=== PATIENT | female | born 1950 | race Caucasian/White ===

== ENCOUNTER 2023-12-23 08:19 | Emergency (ER) | payer OTHER, SELFPAY ==
[2023-12-23 08:48] VITALS: BP 156/85; PULSE 77; RESP 18; TEMP 37.2; O2SAT 97; BMI 23.6
--- NOTE | 2023-12-23 09:05 | XR_ITS ---
Patient: DES BARNARD Facility:?[facility] Patient ID:?[id number] Site Patient ID:?[id number]. Site :?[id number] Study:?XRay-Spine Thoracic 3 VIEWS-12/23/2023 9:28:15 AM Ordering Physician:PIERRE Final Report: Indication: Pain Technique: Three views of the thoracic spine were obtained as AP, lateral and swimmer`s views Comparison: None Findings: Decreased bone mineral density. Moderate S shaped scoliosis. Significant degenerative changes mainly at the mid and upper thoracic spine as well as the incidentally visualized cervical spine. Kyphoscoliosis. No visible acute fracture, dislocation or destructive process. Impression: Decreased bone mineral density. Kyphoscoliosis. Degenerative changes. No visible acute fracture, dislocation or destructive process. Dictated by Carroll Mendieta MD @ 12/23/2023 9:52:26 AM Signed by:?Carroll Mendieta MD @12/23/2023 9:52:26 AM (Electronic Signature)
--- NOTE | 2023-12-23 09:10 | ED_ITS ---
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 She has pain in her left paravertebral area on the midthoracic spine. It has been uncomfortable. Seems like it is getting a bit worse. She has had no fevers, cough, chills. She works out twice a week with a software trainer. She has known osteoporosis. She is not on any medications currently. She has had no fevers or chills as mention, no history of similar symptoms. She does think she hurt it when she lifted this board. Related Data Allergies Allergy/AdvReac Type Severity Reaction Status Date / Time Penicillins Allergy Verified 12/23/23 08:48 Review of Systems Status of ROS: Reports: 6 or more systems reviewed and unremarkable except as noted in History and below PFSH PFS Social History Smoking Status: Never smoker Do you use any of these nicotine containing products: None How often do you have a drink containing alcohol: 2-4 times a month How many standard drinks containing alcohol do you have on a typical day: 1 or 2 How often do you have six or more drinks on one occasion: Never AUDIT-C Alcohol total score: 2 Non-prescribed substance use: denies use service: No Exam Narrative: Exam Narrative: Objective: Patient is in no marked distress but is standing walking about the room Afebrile Blood pressure is slightly elevated Patient points to her paravertebral muscles on the left thoracic spine mid area as the area of tenderness. There is no marked palpable tenderness, no midline pain in her back. Range of motion is limited secondary to discomfort. She den ies any radicular symptoms, moving arms and legs well, able ambulate without difficulty. Const: Vital Signs, click to edit/add: Vital Signs - 24 hr 12/23/23 08:48 Temperature 98.9 F Pulse Rate [Pulse Oximeter] 77 Respiratory Rate 18 Blood Pressure [Ri ght Upper Arm] 156/85 H Pulse Oximetry 97 Oxygen Delivery Me thod Room Air Course Vital Signs Vital signs: Initial Vital Signs Temperature 98.9 F 12/23/23 08:48 Temperature Source Temporal Artery Scan 12/23/23 08:48 Pulse Rate 77 12/23/23 08:48 Pulse Rhythm Regular 12/23/23 08:48 Respiratory Rate 18 12/23/23 08:48 Blood Pressure 156/85 H 12/23/23 08:48 Blood Pressure Mean 108 H 12/23/23 08:48 Blood Pressure Position Standing 12/23/23 08:48 Pulse Oximetry 97 12/23/23 08:48 Oxygen Delivery Method Room Air 12/23/23 08:48 Vital Signs Temperature 98.9 F 12/23/23 08:48 Pulse Rate 77 12/23/23 08:48 Respiratory Rate 18 12/23/23 08:48 Blood Pressure 156/85 H 12/23/23 08:48 Pulse Oximetry 97 12/23/23 08:48 Oxygen Delivery Method Room Air 12/23/23 08:48 Temperature 98.9 F 12/23/23 08:48 Pulse Rate 77 12/23/23 08:48 Respiratory Rate 18 12/23/23 08:48 Blood Pressure 156/85 H 12/23/23 08:48 Pulse Oximetry 97 12/23/23 08:48 Oxygen Delivery Method Room Air 12/23/23 08:48 Medications Administered Medications: Discontinued Medications Generic Name Dose Route Start Last Admin Trade Name Tonya PRN Reason Stop Dose Admin Morphine Sulfate 4 mg 12/23/23 09:05 12/23/23 09:18 Morphine 10 Mg/Ml Inj IM 12/23/23 09:06 4 mg ONCE ONE Administration Medical Decision Making MDM Narrative Medical decision making narrative: 73-year-old female with a thoracic back strain. History of osteoporosis. I think making sure she has never compression fracture thoracic spine be appropriate, if her thoracic spine x-ray is negative, I think she can take Tylenol Advil at home. Will give her a 4 mg IM dose of morphine here. This should help with muscle relaxation without being overly sedating. She should recheck with regular doctor next 2-3 days to reach cyst check and see how she is doing, may need physical therapy or other modality. Addendum 9:56 a.m.: Patient's x-ray read by me looks unremarkable, Radiology confirms. At this point I think we can allow her to go home Tylenol and Aleve as mention, will have given the morphine here. She can ice on aggressive basis. Follow up with regular doctor in 2-3 days consider physical therapy if not improving. Or more advanced imaging. Discharge Plan Discharge Clinical Impression: Acute thoracic myofascial strain Patient Disposition: Home w/ Parent or Adult Condition: Stable Additional Instructions: Light activity, Advil or Aleve as needed, Tylenol as needed, ice to the affected area 5-10 minutes 3 to 5 times a day, follow up with primary care in the next 2- 3 days for reassessment, consider physical therapy if not improving. Activity Level: Light activity Discharge Diet: Regular Follow Up/Referrals: Alin Desai MD [Staff Physician] - Stand Alone Forms: [address] [employer] Info Instructions
[2023-12-23] MEDS: MORPHINE 10 MG/ML inj 4 MG IM (09:18)
== END 2023-12-23 10:12 | disposition home or self-care (01) ==
PROVIDERS: Emergency Provider Family Medicine
DX: S29.012A Strain of muscle and tendon of back wall of thorax, initial encounter (principal); X50.0XXA Overexertion from strenuous movement or load, initial encounter; Y99.0 Civilian activity done for income or pay
CPT/HCPCS: 72070; 96372; 99283; 99284; J2270

== ENCOUNTER 2024-12-14 18:50 | Outpatient (CLI) | payer OTHER, SELFPAY | END 2024-12-14 18:51 | disposition home or self-care (01) | LOC: NFLDREF 12-15 11:31 | PROVIDERS: Visit Provider Nurse Practitioner Family | DX: R39.15 Urgency of urination (principal); N30.00 Acute cystitis without hematuria | CPT/HCPCS: 87086 ==

== ENCOUNTER 2025-05-13 08:19 | Day surgery (SDC) | payer MEDICARE, BC, SELFPAY ==
[2025-05-13] VITALS (33 sets, daily range): BP systolic 64–181; BP diastolic 36–95; PULSE 49–70; RESP 12–18; TEMP 35.9–37.8; O2SAT 93–98; BMI 21.7
[2025-05-13] MEDS: OXYCODONE (CR) 10 MG TAB.ER.12H PO (09:10)
[2025-05-13] MEDS: ACETAMINOPHEN 500 MG TABLET 1000 MG PO ×3 (09:10→23:02)
[2025-05-13] MEDS: SODIUM CHLORIDE 0.9 % (FLUSH) 10 ML SYRINGE IVF (09:20)
--- NOTE | 2025-05-13 09:30 | W.PM.H&PU ---
History & Physical Update History & Physical Update H&P Reviewed and patient assessed: No changes noted
--- NOTE | 2025-05-13 09:31 | CRLHL7_ITS ---
For Patients: As a result of the Cures Act, medical imaging exams and procedure reports are released immediately into your electronic medical record. You may view this report before your referring provider. If you have questions, please contact your health care provider. Indication: Status post right replacement. Technique: AP pelvis and cross-table lateral view right hip. Comparison: Pelvis and right hip radiograph 04/23/2025. Findings: An uncemented right total hip arthroplasty has been placed. Components are well positioned. No other retained radiopaque metallic surgical foreign body is present. There are postoperative changes within the right hip soft tissues. There is severe osteoarthritis of the left hip. Impression: Status post right total arthroplasty. Dictated by Dez Mendez MD @ 05/13/2025 3:50:48 PM (Electronically Signed)
[2025-05-13] MEDS: LACTATED RINGERS 1000 ML 1,000 ML 100 ML IV ×2 (09:48→11:59)
[2025-05-13] MEDS: MIDAZOLAM HCL 1 MG/ML inj IVP (10:15)
--- NOTE | 2025-05-13 10:22 | SUR.PREOP ---
TIME?OUT:?1015 PT/RN/MDA?VERIFICATION?OF?SURGICAL?SITE,?PROCEDURE,?AND?CONSENT OBTAINED?PRIOR?TO?INVASIVE?PROCEDURE.
--- NOTE | 2025-05-13 10:30 | CRLHL7_ITS ---
For Patients: As a result of the Cures Act, medical imaging exams and procedure reports are released immediately into your electronic medical record. You may view this report before your referring provider. If you have questions, please contact your health care provider. Indication: Status post hip replacement. Technique: Fluoroscopic guidance was utilized by Dr. Vazquez. One spot radiographic images were obtained. 30.5 seconds of fluoroscopy time was utilized. Dictated by Dez eMndez MD @ 05/13/2025 3:32:35 PM (Electronically Signed)
[2025-05-13] MEDS: TRANEXAMIC ACID 100 MG/ML INJ 1000 MG IV (10:40)
--- NOTE | 2025-05-13 11:51 | PM.ORPRC ---
Procedure Note Date of procedure: 05/13/25 Procedure: PREOPERATIVE DIAGNOSIS: 1. Right hip osteoarthritis, severe, primary POSTOPERATIVE DIAGNOSIS: 1. Right hip osteoarthritis, severe, primary PROCEDURE: 1. Right total hip arthroplasty-anterior approach 2. 15384 - intraoperative fluoroscopy up to 1 hour. SURGEON: Cj Vazquez MD. VEGETABLE I FARMWORKER: Sourav Yeung PA-C; JEANNE Walls - Of note, a skilled metallurgical laboratory assistant was critical for this case to aid in patient positioning, tissue retraction, limb manipulation/positioning, and closure. ANESTHESIA: Spinal anesthetic EBL: 200 mL IMPLANTS: DePuy J&J uncemented total hip [place] cup size 52, hole eliminator, +4 neutral liner Actis stem, high offset, size 6 +1.5 mm ceramic 36 mm head COMPLICATIONS: None evident INDICATIONS: The patient is a pleasant 74-year-old female who has experienced severe right hip pain and difficulty bearing weight. Workup included x-rays which revealed severe osteoarthrosis in the hip. Given the deformity, the dysfunction, and the pain, as well as the failure of nonoperative management, recommendation was made for surgery. FINDINGS: Full-thickness chondral loss diffusely throughout the femoral head and acetabulum. Osteophytes on the femoral head/neck junction and perimeter of the acetabulum. Moderate effusion upon entering the joint. DESCRIPTION OF PROCEDURE: Following a thorough discussion of risks, benefits, and alternatives consent was obtained and the right hip was marked. The patient was brought to the operating room and placed supine on the operating table. Induction of anesthesia was undertaken. 1 g IV Ancef and 1 g tranexamic acid was administered within 1 hr of incision preoperatively. Proper time-out was performed identifying proper patient, site, procedure. The operative extremity was prepped and draped in the appropriate sterile fashion using ChloraPrep after the patient was positioned on the Stone table with head in neutral alignment and all bony prominences well padded. C-arm fluoroscopic imaging was utilized to confirm proper pelvis rotation and position, and to get true AP films of both the contralateral left, and the affected right hip. This is for comparison. A longitudinal incision was made starting approximately 1 cm distal to the ASIS, and 2-3 cm lateral. The incision was extended distally aiming toward the fibular head. Sharp incision through skin and bovie cautery through the subcutaneous tissue allowed identification of the TFL fascia. This was sharply divided, and the fascia bluntly released from the muscle fibers as we dissected medial. Upon coming to the medial border, we were able to retract the TFL laterally, and penetrated the deeper fascia and identify the crossing circumflex vessels. These were ligated/cauterized. The rectus was elevated from the capsule, and retractors placed laterally and medially along the femoral neck to help with visualization of the capsule. We then performed an inverted T capsulotomy. The capsule was tagged for later repair. Retractors were placed inside the capsule. The femoral neck was visualized after releasing medially down to the lesser trochanter, along the saddle laterally, and up onto the acetabulum. The femoral neck cut was made in line with our preoperative templating. The head was removed in a single piece, and sized. We turned our attention to acetabular preparation. Initially, the labrum was resected from around the perimeter, the pulvinar was excised, allowing us to visualize the false wall. We started the reaming with a 43 mm reamer. This was medialized down to the true wall. We then enlarged our reamers sequentially up to one size less than the selected cup size. We trialed at the same size and found it to have an excellent fit. The selected cup was then opened, inserted, and impacted in line with the goal of 40? of abduction, and 20-25? of anteversion. This was confirmed on C-arm fluoroscopic imaging to be in the appropriate/goal position. Once the cup was placed we placed a hole eliminator and a liner consistent with preop planning. Attention was turned to the femoral preparation. The limb was extended, externally rotated, and adducted. The posteromedial capsule was released, as retractors were placed allowing excellent access to the proximal femur. Initially a jukebox routeman was followed by canal finder followed by various broaches. We broached sequentially up to the size noted above, found it to have excellent rotational control, and trialing various heads and necks, revealed that appropriate neck offset, and the above noted head size provided the greatest stability, and baptism of length, and offset. C-arm fluoroscopic imaging confirmed position of the stem, as well as leg lengths, which were compared with the pre procedure all fluoroscopic images. Trial implants were removed, the real femoral stem inserted, as was the appropriate head. After reducing, the leg was placed through range of motion and stability was confirmed anterior, posterior, and lateral. A 3 min Betadine soak was then performed, and thorough irrigation with normal saline followed. Closure of the capsule was performed with #1 PDS. Bleeding was confirmed to be controlled at this stage, and the TFL fascia was closed with #0 strata fix. Subcutaneous, and subcuticular closure was performed with 2-0 Stratafix and 4-0 Stratafix, respectively. Dressings were applied, and the patient was awoken from anesthesia and transferred the PACU in stable condition. A skilled metallurgical laboratory assistant was critical for this case to aid in patient positioning, tissue retraction, acetabular and proximal femoral exposure, limb manipulation/positioning, dislocation/relocation, patient safety, and closure. PLAN: 1. Weight bear as tolerated operative extremity. 2. 23 hr perioperative antibiotics. 3. Ice. 4. PT/OT consults for ambulation assistance/mobility education. 5. Social work consult for discharge planning. 6. DVT prophylaxis with at SCDs and Xarelto x5 days followed by aspirin for a total of 1 month.
--- NOTE | 2025-05-13 12:09 | P.NB_ITS ---
Nerve Block Nerve Block Time Seen by Provider: 10:15 Date Seen: 05/13/25 Type of block requested by surgeon for post-operative analgesia: TYRONE/LFCN Side: right Time out performed: Yes Verification of patient name: Yes Verification of date of : Yes Site marking: site marked Name of person performing procedure: Ananda Continuous monitoring Was continuous monitoring of O2 sat, B/P, design painter, recorded every 15 minutes?: Yes Procedure Checklist: sterile prep, needles and gloves Ultrasound guided. Images saved: Yes Medications given in 5ml increments after negative aspiration: Ropivicaine %: 0.5 mL: 30 Needle gauge: 20 Precedex (mcg): 25 Patient tolerated procedure well: Yes Additional comments: Needle noted below psoas tendon needle noted adjacent to LFCN Block Charges Block Charge (with Pro Fee): Other Periph Nerve Block Use of Ultrasound Machine for Block: Yes- US Guidance/pain block
--- NOTE | 2025-05-13 12:10 | P.ANES_ITS ---
Anesthesia Charges Start Date/Time Anesthesia Start Date: 05/13/25 Anesthesia Start Time: 10:31 Stop Date/Time Anesthesia Stop Date: 05/13/25 Anesthesia Stop Time: 12:40 Summary Extremes of Age - Over 70 or under 1: MDA Coding CPT Codes CPT Codes: ANESTH HIP ARTHROPLASTY - 05039 ([id number]) P2 - PATIENT W/MILD SYST DISEASE, QK - STRUCTURAL STEEL WORKER APPRENTICE 2-4 CNCRNT ANES PROC, QX - TIP FIXER SVC W/ MD MED DIRECTION Additional Codes: Summary - Extremes of Age - Over 70 or under 1: MDA ([id number])
--- NOTE | 2025-05-13 12:10 | W.ANESCHARGE ---
Anesthesia Charges Start Date/Time Anesthesia Start Date: 05/13/25 Anesthesia Start Time: 10:31 Stop Date/Time Anesthesia Stop Date: 05/13/25 Anesthesia Stop Time: 12:40 Summary Extremes of Age - Over 70 or under 1: MDA Coding CPT Codes CPT Codes: ANESTH HIP ARTHROPLASTY - 79020 ([id number]) P2 - PATIENT W/MILD SYST DISEASE, QK - WASH DRILLER 2-4 CNCRNT ANES PROC, QX - BILINGUAL MANAGER SVC W/ MD MED DIRECTION Additional Codes: Summary - Extremes of Age - Over 70 or under 1: MDA ([id number])
--- NOTE | 2025-05-13 12:44 | P.ANES_ITS ---
Anesthesia Charges Start Date/Time Anesthesia Start Date: 05/13/25 Anesthesia Start Time: 10:31 Stop Date/Time Anesthesia Stop Date: 05/13/25 Anesthesia Stop Time: 12:40 Summary Extremes of Age - Over 70 or under 1: FLEX O WRITER OPERATOR Coding CPT Codes CPT Codes: ANESTH HIP ARTHROPLASTY - 05609 ([id number]) P2 - PATIENT W/MILD SYST DISEASE, QK - EQUALIZING SAW OPERATOR 2-4 CNCRNT ANES PROC, QX - FLEX O WRITER OPERATOR SVC W/ MD MED DIRECTION Additional Codes: Summary - Extremes of Age - Over 70 or under 1: FLEX O WRITER OPERATOR ([id number])
--- NOTE | 2025-05-13 12:44 | W.ANESCHARGE ---
Anesthesia Charges Start Date/Time Anesthesia Start Date: 05/13/25 Anesthesia Start Time: 10:31 Stop Date/Time Anesthesia Stop Date: 05/13/25 Anesthesia Stop Time: 12:40 Summary Extremes of Age - Over 70 or under 1: CHECK PILOT Coding CPT Codes CPT Codes: ANESTH HIP ARTHROPLASTY - 16526 ([id number]) P2 - PATIENT W/MILD SYST DISEASE, QK - PHARMACOLOGY PROFESSOR 2-4 CNCRNT ANES PROC, QX - CHECK PILOT SVC W/ MD MED DIRECTION Additional Codes: Summary - Extremes of Age - Over 70 or under 1: CHECK PILOT ([id number])
[2025-05-13] MEDS: ONDANSETRON 2 MG/ML inj 4 MG IVP (14:39)
--- NOTE | 2025-05-13 14:49 | PM.IMCN1 ---
Date of Consult Patient: [facility] Patient Consult date: 05/13/25 Requesting Physician: Orthopedics Primary Care Provider: Yoni Patel MD Consult Narrative Reason for consult: Medical management Narrative: Ronna Oliveira is a 74 year old female past medical history significant for hypertension, factor 5 Leiden without history of clots is POD#0 status post right total hip arthroplasty with Dr. Fiore. Postoperatively, patient Is seen with at bedside, she reports pain is currently well managed. Does not like to take narcotics in general. No nausea, ate a full dinner. No vomiting. There have been no perioperative complications or nursing concerns reported. Estimated total blood loss documented as 200ml. Updated and reviewed the active medical problems, past medical history, past surgical history, social history, allergies and medications in our electronic EMR. Review of Systems Narrative: REVIEW OF SYSTEMS: Complete review of systems performed and negative unless otherwise stated in HPI or below. [facility] Medical History (Updated 05/13/25 @ 16:16 by Annabel Fernandez PA-C) Osteoarthritis of left knee ?M17.12 - Unilateral primary osteoarthritis, left knee (ICD-10) Osteoarthritis of left hip ?M16.12 - Unilateral primary osteoarthritis, left hip (ICD-10) Osteoarthritis of right knee ?M17.11 - Unilateral primary osteoarthritis, right knee (ICD-10) Osteoarthritis of right hip ?M16.11 - Unilateral primary osteoarthritis, right hip (ICD-10) Dilation of urethra ?N36.8 - Other specified disorders of urethra (ICD-10) HTN (hypertension) ?I10 - Essential (primary) hypertension (ICD-10) Kidney stones ?N20.0 - Calculus of kidney (ICD-10) Factor V Leiden mutation ?D68.51 - Activated protein C resistance (ICD-10) Benign essential HTN ?I10 - Essential (primary) hypertension (ICD-10) Surgical History History of removal of cyst ?Z98.890 - Other specified postprocedural states (ICD-10) History of carpal tunnel surgery of right wrist (12/26/19) ?Z98.890 - Other specified postprocedural states (ICD-10) Social History What is your current living situation?: I presently have a place to live Problems where you live: no known problems In the past 12 months, utilities in danger of being shut off: declined to answer In past 12 months, lack of transportation kept you from medical appts, meetings, work, or getting things needed for daily living: declined to answer In the past 12 mos, have been you worried that your food would run out before you had money to buy more?: declined to answer In the past 12 mos, the food you bought just didn't last and you didn't have money to buy more?: declined to answer Smoking Status: Never smoker Do you use any of these nicotine containing products: None How often do you have a drink containing alcohol: monthly or less How many standard drinks containing alcohol do you have on a typical day: 1 or 2 How often do you have six or more drinks on one occasion: Never AUDIT-C Alcohol total score: 1 Non-prescribed substance use: denies use Caffeine: Yes (coffee 2/c day) How often does anyone, including family, friends and others, physically hurt you: never How often does anyone, including family, friends and others, insult or talk down to you: never How often does anyone, including family, friends and others, threaten you with harm: never How often does anyone, including family, friends and others, scream or curse at you: never service: No Meds Home Medications and Allergies Home Medications ?Medication ?Instructions ?Recorded ?Confirmed ?Type lisinopril 10 1 tab PO DAILY 09/25/24 05/13/25 History mg-hydrochlorothiazide 12.5 mg tablet aspirin 81 mg tablet 81 mg PO DAILY 04/30/25 05/13/25 History Held on 05/13/25. Instructions: Resume on 06/14/25. Do not take while taking xarelto. acetaminophen 500 mg capsule 500 - 1,000 mg (1 - 2 x 500 mg) PO 05/13/25 Rx Q6H PRN #100 caps rivaroxaban 10 mg tablet 10 mg PO DAILY #29 tabs 05/13/25 Rx sennosides 8.6 mg-docusate sodium 1 - 4 tab-cap (1 - 4 x 8.6-50 mg) 05/13/25 Rx 50 mg tablet (Senna-S) PO BID PRN constipation #60 tabs Allergies Allergy/AdvReac Type Severity Reaction Status Date / Time Penicillins Allergy Anaphylaxis Verified 05/13/25 08:50 Sulfa (Sulfonamide Allergy Verified 05/13/25 10:24 Antibiotics) Exam Narrative: Exam Narrative: PHYSICAL EXAM General: Pleasant, conversant, NAD HEENT: Normocephalic, atraumatic, sclera white, EOMI, oral mucosa moist Cardiovascular: RRR, S1S2. No pitting edema Pulmonary: CTA bilaterally without rhonchi, rales, expiratory wheezes. No dyspnea Neurological: Alert, answering questions appropriately, cranial nerves intact, no focal findings Extremities: No gross joint deformity or swelling. Postoperative dressing in place, dry. Neurovascularly intact Skin: Warm, dry. Const: Vital Signs, click to edit/add: Vital Signs - 24 hr 05/13/25 09:45 05/13/25 10:15 05/13/25 10:20 Temperature 98.3 F Pulse Rate 62 55 L 51 L Respiratory Rate 16 16 16 Blood Pressure 156/72 H 181/69 H 119/66 Pulse Oximetry 98 98 98 Oxygen Delivery Me thod Room Air Nasal Cannula Nasal Cannula Oxygen Flow Rate 2 2 05/13/25 12:35 05/13/25 12:40 05/13/25 12:45 Temperature 97.8 F Pulse Rate 57 L 56 L 52 L Respiratory Rate 15 16 14 Blood Pressure 104/52 L 109/55 L 109/54 L Pulse Oximetry 96 94 95 Oxygen Delivery Me thod Room Air Oxygen Flow Rate 05/13/25 12:50 05/13/25 12:55 05/13/25 13:00 Temperature Pulse Rate 49 L 53 L 50 L Respiratory Rate 12 13 14 Blood Pressure 113/62 114/57 L 101/59 L Pulse Oximetry 94 96 93 Oxygen Delivery Me thod Oxygen Flow Rate 05/13/25 13:06 Temperature 100.0 F H Pulse Rate 55 L Respiratory Rate 16 Blood Pressure 116/65 Pulse Oximetry 96 Oxygen Delivery Me thod Oxygen Flow Rate Assessment and Plan Assessment and plan (1) Osteoarthritis of right hip: Problem comment: -POD#0 s/p right total hip arthroplasty, Dr. Fiore -perioperative management including pain management and anticoagulation per Orthopedic surgery -encourage postoperative pulmonary hygiene -PT OT consults -plan to discharge home with Spouse tomorrow -200 mL EST operatively, check hemoglobin in a.m. -PACU temp recorded as 100? (there is also a note that warm air from the [employer] was blowing. On recheck, afebrile) Status: Acute (2) Factor V Leiden mutation: Problem comment: -no history of clots -postoperative DVT prophylaxis per Orthopedic surgery. In reviewing Open Evidence, recommendation is for 35 days of DOAC post op PAUL - discussed with surgical team Status: Acute (3) HTN (hypertension): Problem comment: -resume antihypertensive following discharge, tomorrow if needed, monitoring blood pressures postoperatively Status: Acute Plan May resume home medications upon discharge. Consider antihypertensives in the morning if necessary. Hospital medicine team will sign off. Please contact our service with any questions or concerns. Total Time Spent Total Time Spent: Today I spent 75 minutes seeing the patient, reviewing Expanse and EPIC notes/diagnostics, discussing the care plan with our care time that includes social work, PT/OT, pharmacy, RT, longterm and documenting my impressions and plan in the medical record.
[2025-05-13] MEDS: 0.9 % SODIUM CHLORIDE 250 ml 250 ML IV (16:34)
[2025-05-13 16:49] LABS: Hemoglobin* 11.3 gm/dL (12.0-16.0)
[2025-05-13] MEDS: CEFAZOLIN 1 GM in 0.9 % SODIUM CHLORIDE Mini-bag 100 ML IVPB (17:48)
--- NOTE | 2025-05-13 19:45 | PC.NURSE ---
end of shift: Pt. is AOx4. Afebrile. SCDs in place. Pt. drowsy upon arrival to the floor. Family bedside and supportive. Pt. up to use BR and reported dizziness. RN sat pt. in chair and BP checked indicating hypotension. MD notified; bolus given. See EMAR. BP increased. Active ice applied. R anterior hip dressing C/D/I. Pt. denies N/V. Tolerating regular diet and fluids. x1A w/ GB and walker.
[2025-05-13] MEDS: SENNOSIDES 1 TAB TABLET 2 TAB PO (23:03)
[2025-05-14] MEDS: CEFAZOLIN 1 GM in 0.9 % SODIUM CHLORIDE Mini-bag 100 ML IVPB (01:15)
[2025-05-14 01:59] VITALS: BP 113/59; PULSE 71; RESP 16; TEMP 37.4; O2SAT 98
[2025-05-14] MEDS: ACETAMINOPHEN 500 MG TABLET 1000 MG PO ×2 (04:56→10:42)
[2025-05-14 05:00] VITALS: BP 118/62; PULSE 76; RESP 18; O2SAT 95
[2025-05-14 05:52] LABS: Hemoglobin* 10.6 gm/dL (12.0-16.0)
[2025-05-14 07:00] VITALS: BP 118/59; BP 128/61; PULSE 72; PULSE 77; RESP 18; TEMP 37; TEMP 37.2; O2SAT 97; O2SAT 98
[2025-05-14] MEDS: 0.9 % SODIUM CHLORIDE 250 ml 250 ML IV (07:30)
--- NOTE | 2025-05-14 07:36 | PC.NURSE ---
Pt alert and oriented x3. Afebrile. Pt reports 4-8/10 pain in right hip, pain managed with ice pack, scheduled medications. Pt is up SBA with walker and gait belt. Pt has reported some nausea and feeling flush after trip back from bathroom, nausea managed with wilder ashley. Pt's blood pressure was noted to drop to high 98/78, retaken pt was 106/62. Discussed with pt about breathing and not holding breath and bearing down when sitting and while using restroom, discussed pain management to help with the pain when getting up to bathroom, pt refused oxycodone, and prefers to use Tylenol. Updated MD Gonzalez 250 bolus ordered. Pt is voiding, and tolerating a regular diet. Pt denies passing gas yet, bowl sounds active.
[2025-05-14] MEDS: TRAMADOL HCL 50 MG TABLET PO (07:46)
[2025-05-14 08:00] VITALS: PULSE 77; RESP 18; O2SAT 97
[2025-05-14] MEDS: RIVAROXABAN 10 MG TABLET PO (08:48)
[2025-05-14] MEDS: SENNOSIDES 1 TAB TABLET 2 TAB PO (08:48)
--- NOTE | 2025-05-14 09:33 | P.ORPN_ITS ---
Subjective Subjective Date Seen: 05/14/25 Principal diagnosis: Status postop day 1, right total hip arthroplasty - anterior approach Interval history: Patient reports doing okay. No acute events over night. Some nausea overnight - this is improved per patient; not requiring any further medication for nausea. Pain managed with scheduled and PRN medications, ice. DVT prophylaxis: Rivaroxaban for 35 days due to history of factor 5 Leiden mutation, SCDs, walki ng. Denies fevers, chills, aches, N/V, CP, SOB/TAN, or lightheadedness. She is concerned about taking oxycodone and getting addicted to it. Originally requesting tramadol for pain. This morning, she got half dose oxycodone and tramadol. Ortho Exam Narrative Exam Narrative: -Patient appears comfortable in recliner; no apparent acute distress -Alert and oriented times 3 -Operative hip mildly swollen; soft tissues supple; no obvious erythema. No Ecchymosis. Warmth appropriate -Surgical dressing clean, dry, intact; no obvious drainage, no erythematous streaking peripheral to the bandage -Bilateral calves soft and supple; no significant swelling, edema, tenderness, erythema, discoloration, warmth, or palpable cords -2+ DP/PT pulses, intact dermatomes and myotomes distally (5/5 strength). Mild numbness about the lateral femoral cutaneous nerve distribution. Const Vital Signs, click to edit/add: Vital Signs - 24 hr 05/13/25 09:45 05/13/25 10:15 05/13/25 10:20 Temperature 98.3 F Pulse Rate 62 55 L 51 L Pulse Rate [Pulse Oximeter] Respiratory Rate 16 16 16 Blood Pressure 156/72 H 181/69 H 119/66 Blood Pressure [Left Arm] Blood Pressure [Right Arm] Pulse Oximetry 98 98 98 Oxygen Delivery Method Room Air Nasal Cannula Nasal Cannula Oxygen Flow Rate 2 2 05/13/25 12:35 05/13/25 12:40 05/13/25 12:45 Temperature 97.8 F Pulse Rate 57 L 56 L 52 L Pulse Rate [Pulse Oximeter] Respiratory Rate 15 16 14 Blood Pressure 104/52 L 109/55 L 109/54 L Blood Pressure [Left Arm] Blood Pressure [Right Arm] Pulse Oximetry 96 94 95 Oxygen Delivery Method Room Air Oxygen Flow Rate 05/13/25 12:50 05/13/25 12:55 05/13/25 13:00 Temperature Pulse Rate 49 L 53 L 50 L Pulse Rate [Pulse Oximeter] Respiratory Rate 12 13 14 Blood Pressure 113/62 114/57 L 101/59 L Blood Pressure [Left Arm] Blood Pressure [Right Arm] Pulse Oximetry 94 96 93 Oxygen Delivery Method Oxygen Flow Rate 05/13/25 13:06 05/13/25 13:13 05/13/25 13:30 Temperature 100.0 F H 96.9 F L 96.8 F L Pulse Rate 55 L Pulse Rate [Pulse Oximeter] 54 L 55 L Respiratory Rate 16 14 14 Blood Pressure 116/65 Blood Pressure [Left Arm] 124/67 122/71 Blood Pressure [Right Arm] Pulse Oximetry 96 97 98 Oxygen Delivery Method Room Air Room Air Oxygen Flow Rate 05/13/25 13:45 05/13/25 14:00 05/13/25 14:15 Temperature 96.8 F L Pulse Rate Pulse Rate [Pulse Oximeter] 51 L 52 L Respiratory Rate 14 14 14 Blood Pressure Blood Pressure [Left Arm] 124/67 130/75 128/71 Blood Pressure [Right Arm] Pulse Oximetry 98 98 98 Oxygen Delivery Method Room Air Room Air Room Air Oxygen Flow Rate 2 05/13/25 14:45 05/13/25 15:00 05/13/25 15:15 Temperature 96.7 F L Pulse Rate Pulse Rate [Pulse Oximeter] 61 60 Respiratory Rate 14 14 Blood Pressure Blood Pressure [Left Arm] 143/95 H 115/81 Blood Pressure [Right Arm] Pulse Oximetry 97 95 95 Oxygen Delivery Method Room Air Room Air Room Air Oxygen Flow Rate 05/13/25 16:00 05/13/25 16:25 05/13/25 16:26 Temperature Pulse Rate Pulse Rate [Pulse Oximeter] Respiratory Rate Blood Pressure Blood Pressure [Left Arm] 126/53 L 64/36 L 69/47 L Blood Pressure [Right Arm] Pulse Oximetry Oxygen Delivery Method Oxygen Flow Rate 05/13/25 16:34 05/13/25 16:40 05/13/25 16:45 Temperature 97.1 F L Pulse Rate Pulse Rate [Pulse Oximeter] 58 L 55 L Respiratory Rate Blood Pressure Blood Pressure [Left Arm] 112/60 118/63 122/59 L Blood Pressure [Right Arm] Pulse Oximetry 94 98 Oxygen Delivery Method Room Air Room Air Oxygen Flow Rate 05/13/25 16:50 05/13/25 16:55 05/13/25 17:00 Temperature Pulse Rate Pulse Rate [Pulse Oximeter] 55 L 57 L Respiratory Rate Blood Pressure Blood Pressure [Left Arm] 116/63 129/68 129/67 Blood Pressure [Right Arm] Pulse Oximetry Oxygen Delivery Method Oxygen Flow Rate 05/13/25 17:10 05/13/25 17:20 05/13/25 17:30 Temperature Pulse Rate Pulse Rate [Pulse Oximeter] Respiratory Rate Blood Pressure Blood Pressure [Left Arm] 139/69 138/74 134/90 H Blood Pressure [Right Arm] Pulse Oximetry Oxygen Delivery Method Oxygen Flow Rate 05/13/25 18:00 05/13/25 19:00 05/13/25 23:10 Temperature 97.2 F L Pulse Rate Pulse Rate [Pulse Oximeter] 69 Respiratory Rate 18 18 Blood Pressure Blood Pressure [Left Arm] 126/58 L 128/71 Blood Pressure [Right Arm] Pulse Oximetry 98 95 Oxygen Delivery Method Room Air Room Air Oxygen Flow Rate 05/13/25 23:10 05/14/25 01:59 05/14/25 05:00 Temperature 97.7 F 99.4 F Pulse Rate Pulse Rate [Pulse Oximeter] 70 71 76 Respiratory Rate 18 16 18 Blood Pressure Blood Pressure [Left Arm] 106/62 113/59 L 118/62 Blood Pressure [Right Arm] Pulse Oximetry 95 98 95 Oxygen Delivery Method Room Air Room Air Room Air Oxygen Flow Rate 05/14/25 07:00 05/14/25 07:00 Temperature 99.0 F 98.6 F Pulse Rate Pulse Rate [Pulse Oximeter] 72 77 Respiratory Rate 18 18 Blood Pressure Blood Pressure [Left Arm] 118/59 L Blood Pressure [Right Arm] 128/61 Pulse Oximetry 98 97 Oxygen Delivery Method Room Air Room Air Oxygen Flow Rate Assessment and Plan Assessment and plan (1) Osteoarthritis of right hip: Problem details: -POD#1 s/p right total hip arthroplasty, Dr. Vazquez -perioperative management including pain management and anticoagulation per Orthopedic surgery -encourage postoperative pulmonary hygiene -PT OT consults -plan to discharge home with Spouse tomorrow -200 mL EST operatively, check hemoglobin in a.m. -PACU temp recorded as 100? (there is also a note that warm air from the [employer] was blowing. On recheck, afebrile). Status: Acute (2) Factor V Leiden mutation: Problem details: -no history of clots -postoperative DVT prophylaxis per Orthopedic surgery. In reviewing Open Evidence, recommendation is for 35 days of DOAC post op PAUL - discussed with surgical team Status: Acute (3) HTN (hypertension): Problem details: -resume antihypertensive following discharge, tomorrow if needed, monitoring blood pressures postoperatively Status: Acute Plan - Complete 23 hour perioperative antibiotics. - PT/OT consult for education and assistance. - Social work consult for discharge planning - Prescribed analgesics as needed - DVT prophylaxis: Rivaroxaban 35 days due to factor 5 Leiden mutation (I did discuss that this will be a concern because for the patient but important to protect for DVT/PE; she understands that she is at risk for bleed if she were to hit her head during a fall etc.), walking, and SCDs - Anticipation is for discharge to home with family/friends today 05/14/2025 if the patient remains medically stable, pain is controlled, and they are safe with mobilization. We discussed pain medication, and together, agree with prescribing oxycodone for pain management. Low dosing is encouraged for her.
--- NOTE | 2025-05-14 11:41 | PC.NURSE ---
Nursing Care Hours: [id number] Pt this shift calm and cooperative, alert and oriented. Small bolus infused this AM per OCT. Tolerated walking to bathroom and back to chair, no hypotensive episodes. Trialed Tramadol with little relief to pain. Continue low dose oxycodone per pt request. Discussed pt fears of addiction to opioids and side effects.
--- NOTE | 2025-05-14 13:08 | PC.SOCIAL ---
Delivery Crew Member Consult: SW met with patient and discussed resources/supports needed for home. Patient states that she has everything prepared and will have the support from her . Patient expressed no concerns. SW to assist if needs/concerns arise.
== END 2025-05-14 11:35 | disposition home or self-care (01) ==
LOC: OR 08:22 → MEDSURG 08:23
PROVIDERS: Physician Assistant; PCP Internal Medicine; Visit Provider Orthopaedic Surgery Sports Medicine
PROC: (CPT 27130; principal; 2025-05-13 10:30)
DX: M16.11 Unilateral primary osteoarthritis, right hip (principal); D68.51 Activated protein C resistance; Z79.01 Long term (current) use of anticoagulants; I10 Essential (primary) hypertension; G89.18 Other acute postprocedural pain
CPT/HCPCS: 27130; 01214; 36415; 64450; 73501; 76000; 76942; 85018; 86850; 86900; 86901; 97110; 97116; 97161; 97165; 97530; 97535; 99100; A9270; C1776; J0690; J1100; J1171; J2250; J2405; J2704; J2795; J3010; J7050; J7120

== ENCOUNTER 2025-07-29 10:00 | Outpatient (RCR) | payer MEDICARE, BC, SELFPAY | END 2025-07-29 10:53 | disposition home or self-care (01) | PROVIDERS: PCP Internal Medicine; Visit Provider Orthopaedic Surgery Sports Medicine | DX: Z47.1 Aftercare following joint replacement surgery (principal); Z96.641 Presence of right artificial hip joint; Z51.89 Encounter for other specified aftercare | CPT/HCPCS: 97110; 97140; 97161 ==